=== PATIENT | female | born 1955 | race Caucasian/White ===

== ENCOUNTER 2017-03-06 16:25 | Emergency (ER) | payer MEDICAID, MEDICARE ==
[~2017-03-06] VITALS: Ht 160 cm; Wt 70.8 kg
[~2017-03-06 16:25] MED LIST: ALBU8.5H8 IH; ASPI-482 PO; AZIT500T4 PO; CICL34.6 TP; CRESTOR10 MG PO; DEXL60CA2 PO; DULO30CA2 PO; ELET40TA PO; ESTR0.9T PO; FLUT10.6 IH; HYDR-2762 PO; HYDR25TA PO; LORA1TAB PO; METF500T4 PO; OFLO5DRO7 OT; PRED-220 PO; PREG100C PO; PREG50CA PO; PROM25TA10 PO; RANI150C PO; SPIR1TAB PO; SUCR1TAB PO; SUMA100T4 PO; TOPI25TA7 PO
[2017-03-06 17:47] VITALS: BP 157/89
[2017-03-06] MEDS ORDERED: HYDR-971 PO (17:50)
--- NOTE | 2017-03-06 17:50 | PHYS DOC ---
Past History Past Medical History: Depression, Diabetes, GERD, Hypertension Past Surgical History: Hysterectomy, Other Smoking: Less than 1pk/day Alcohol Use: None Drug Use: None Adult General Chief Complaint Chief Complaint: RIB PAIN HPI HPI 61-year-old female patient with history of the smoking states she had an accidental fall from a standing position last night around 1999 without loss of consciousness or head injury. Patient complaining of pain in right shoulder and right side of her ribs that getting worse with movement and taking deep breaths. Patient states she had ibuprofen before coming to ER and rated her pain 9/10. Patient denies fever and chills, shortness of breath, nausea and vomiting, focal neuro deficit. Review of Systems Review of Systems Constitutional: Denies fever or chills [] Eyes: Denies change in visual acuity, redness, or eye pain [] HENT: Denies nasal congestion or sore throat [] Respiratory: Denies cough or shortness of breath [] Cardiovascular: No additional information not addressed in HPI [] GI: Denies abdominal pain, nausea, vomiting, bloody stools or diarrhea [] : Denies dysuria or hematuria [] Musculoskeletal: Denies back pain, reports joint pain [] Integument: Denies rash or skin lesions [] Neurologic: Denies headache, focal weakness or sensory changes [] Endocrine: Denies polyuria or polydipsia [] All other systems were reviewed and found to be within normal limits, except as documented in this note. Allergies Allergies Allergies Coded Allergies Type Severity Reaction Last Updated Verified Cephalexin Monohydrate Allergy Unknown BLISTERS 03/06/17 Yes Penicillins Allergy Unknown STREAKS ON SKIN 03/06/17 Yes diphenhydramine Allergy Unknown 03/06/17 Yes sulfamethoxazole Allergy Unknown BLISTERS 03/06/17 Yes trimethoprim Allergy Unknown BLISTERS 03/06/17 Yes Physical Exam Physical Exam Constitutional: Well developed, well nourished, mild distress, non-toxic appearance. [] HENT: Normocephalic, atraumatic, bilateral external ears normal, oropharynx moist, no oral exudates, nose normal. [] Eyes: PERRLA, EOMI, conjunctiva normal, no discharge. [] Neck: Normal range of motion, no tenderness, supple, no stridor. [] Cardiovascular:Heart rate regular rhythm, no murmur [] Lungs & Thorax: Bilateral breath sounds clear to auscultation, right-sided chest wall tenderness without crepitation or ecchymosis [] Abdomen: Bowel sounds normal, soft, no tenderness, no masses, no pulsatile masses. [] Skin: Warm, dry, no erythema, no rash. [] Back: No tenderness, no CVA tenderness. [] Extremities: No tenderness, no cyanosis, no clubbing, ROM intact, no edema, right shoulder without tenderness or deformity. [] Neurologic: Alert and oriented X 3, normal motor function, normal sensory function, no focal deficits noted. [] Psychologic: Affect normal, judgement normal, mood normal. [] Current Patient Data Vital Signs Vital Signs Date Time Temp Pulse Resp B/P (MAP) Pulse Ox O2 Delivery O2 Flow Rate FiO2 03/06/17 16:39 97.8 102 16 97 Room Air EKG EKG [] Radiology/Procedures Radiology/Procedures [Shoulder x-ray and right ribs x-ray interpreted by me and did not show acute fracture] Course & Med Decision Making Course & Med Decision Making Pertinent Imaging studies reviewed. (See chart for details) [] Dragon Disclaimer Dragon Disclaimer This electronic medical record was generated, in whole or in part, using a voice recognition dictation system. Departure Departure: Impression: Primary Impression: Chest wall injury Additional Impressions: Rib pain on right side Right shoulder strain Fall at home Tobacco abuse Tobacco abuse counseling Disposition: HOME, SELF-CARE (At 1748) Condition: STABLE Referrals: MANJU BALTAZAR DO (PCP) Patient Instructions: Muscle Strain, Rib Contusion, Smoking Cessation Additional Instructions: Follow-up with your primary care physician in 3-5 days Quit smoking Apply ice sinus chest and shoulder Scripts Hydrocodone Bit/Acetaminophen (NORCO 5-325 TABLET) 1 Each Tablet 1 TAB PO PRN Q6HRS Y for PAIN, #14 TAB 0 Refills Prov: GIO HUTCHISON MD 03/06/17 Problem Qualifiers GIO HUTCHISON MD Mar 06, 2017 17:50
--- NOTE | 2017-03-07 07:55 | RAD ---
Right shoulder, 3 views, 03/06/2017: History: Fall, pain No fracture or dislocation is identified. No significant arthritic change is seen. IMPRESSION: No acute right shoulder abnormality is detected. Right RIBS with chest, 3 views, 03/06/2017: No acute right rib fracture is identified. There is no evidence of underlying pneumothorax, hemothorax or pulmonary infiltrate. The heart size is normal. Mild scattered degenerative changes are present in the spine. IMPRESSION: No acute right rib abnormality is detected.
== END 2017-03-06 17:55 | disposition home or self-care (01) ==
LOC: ER 16:25
DX: S29.9XXA Unspecified injury of thorax, initial encounter (principal); S46.911A Strain of unspecified muscle, fascia and tendon at shoulder and upper arm level, right arm, initial encounter; F17.200 Nicotine dependence, unspecified, uncomplicated; K21.9 Gastro-esophageal reflux disease without esophagitis; I10 Essential (primary) hypertension; E11.9 Type 2 diabetes mellitus without complications; Z88.0 Allergy status to penicillin; Z88.1 Allergy status to other antibiotic agents; Z88.8 Allergy status to other drugs, medicaments and biological substances; W19.XXXA Unspecified fall, initial encounter; Y93.89 Activity, other specified; Y99.8 Other external cause status; Y92.098 Other place in other non-institutional residence as the place of occurrence of the external cause
CPT/HCPCS: 71101; 73030; 99284

== ENCOUNTER 2019-05-15 12:06 | Emergency (ER) | payer MEDICARE, MEDICAID ==
[~2019-05-15] VITALS: Ht 160 cm; Wt 75.0 kg
[~2019-05-15 12:06] MED LIST changes: +ALBU2.5V8 IH; -ALBU8.5H8 IH; -HYDR-2762 PO; +HYDR-2765 PO; +HYDR-3165 PO; +LORA-254 PO; -LORA1TAB PO; +METF500T16 PO; -METF500T4 PO
[2019-05-15] MEDS ORDERED: IV NORMAL SALINE 1,000ML 1,000 ML IV ONE (13:45)
[2019-05-15] MEDS ORDERED: IPRATRPIUM/ALBUTEROL 0.5/2.5MG 3 ML NEBU. NEB ONE (13:45)
[2019-05-15] MEDS ORDERED: DEXAMETHASONE SOD PHOS 4 MG/ML VIAL IVP ONE (13:45)
--- NOTE | 2019-05-15 13:51 | PHYS DOC ---
Past History Past Medical History: Depression, Diabetes, GERD, Hypertension Past Surgical History: Hysterectomy, Other Smoking: Less than 1pk/day Alcohol Use: None Drug Use: None Adult General Chief Complaint Chief Complaint: FLU SYMPTOM HPI HPI Patient is a 63-year-old female presents today with history of COPD and current every day smoker presents to the ED with generalized weakness, nonproductive cough, and nausea/vomiting. He stated that she was diagnosed with a "double lung pneumonia" in January 2019, but has had a nonproductive cough and generalized weakness since. She states that the cough is unchanged, but constant since January. She does feel like she has mucus in the back of her throat but is unable to "break loose." She does have generalized weakness and upper abdominal pain, nausea, and vomiting associated with her cough. She states that when her coughing spells are severe she does feel lightheaded and dizzy. She denies re cent fevers does state that she has felt body chills. Patient had a recent CTA at [facility] approximately 2 weeks ago which reportedly was "normal". She finished a course of antibiotics that she believes was "clindamycin" last week for the same symptoms. She states that her symptoms do limit her daily routine due to feeling lightheaded and short of breath when cli mbing up and down stairs. She mentioned that she had been recently diagnosed low levels of potassium and magnesium and had been treating those daily. Review of Systems Review of Systems Constitutional: Denies fever, reports chills and generalized weakness HENT: Denies nasal congestion or sore throat Respiratory: Reports cough and shortness of breath Cardiovascular: Denies chest pain or palpitations GI: Reports abdominal pain, nausea, and vomiting Complete systems were reviewed and found to be within normal limits, except as documented in this note. Family History Family History No pertinent family history Allergies Allergies Allergies Coded Allergies Type Severity Reaction Last Updated Verified Cephalexin Monohydrate Allergy Unknown BLISTERS 03/06/17 Yes Penicillins Allergy Unknown STREAKS ON SKIN 03/06/17 Yes diphenhydramine Allergy Unknown 03/06/17 Yes sulfamethoxazole Allergy Unknown BLISTERS 03/06/17 Yes trimethoprim Allergy Unknown BLISTERS 03/06/17 Yes Physical Exam Physical Exam Constitutional: Well developed, well nourished, no acute distress, non-toxic appearance HENT: Normocephalic, atraumatic, oropharynx moist Eyes: EOMI, conjunctiva normal, no discharge Cardiovascular: Heart rate normal, regular rhythm Lungs & Thorax: Bilateral breath sounds clear to auscultation, no wheezing Abdomen: Soft, generalized upper abdominal tenderness to palpation Skin: Warm, dry, no erythema, no rash Extremities: No tenderness, ROM intact, no edema Neurologic: Alert and oriented x 3, normal motor function, normal sensory function, no focal deficits noted Psychologic: Affect normal, judgment normal EKG EKG 05/15/2019 @1402 Normal sinus rhythm with a heart rate of [address] changes Radiology/Procedures Radiology/Procedures PROCEDURE: CHEST PA & LATERAL EXAM: Chest, 2 views. HISTORY: Cough. COMPARISON: None. FINDINGS: 2 views of the chest are obtained. There is no infiltrate, pleural effusion or pneumothorax. The heart is normal in size. There is a calcified granuloma within the right lower lobe. IMPRESSION: No acute pulmonary finding. Electronically signed by: Lety Lenz MD (05/15/2019 2:14 PM) [facility] Course & Med Decision Making Course & Med Decision Making Pertinent Labs and Imaging studies reviewed. (See chart for details) Patient is a 63-year-old female presents today with history of COPD and current every day smoker presents to the ED with generalized weakness, nonproductive cough, and nausea/vomiting. He stated that she was diagnosed with a "double lung pneumonia" in January 2019 and has had a nonproductive cough and generalized weakness since. She states that the cough is unchanged but constant since January. She does feel like she has mucus in the back of her throat but is unable to "break loose." She does have generalized weakness and upper abdominal pain, nausea, and vomiting associated with her cough. She states that when her coughing spells are severe she does feel lightheaded and dizzy. She denies recent fevers does state that she has felt body chills. She had recent "normal" CTA approximately 2 weeks prior and finished a course of antibiotics she believes was clindamycin last week. Patient was worked up for COPD exacerbation versus possible infectious. Symptomatic treatment provided. Labs obtained and posted to chart. WBC and lactic acid WNL. Troponin WNL. BNP WNL. EKG stable. CXR without acute process. Patient stable for discharge home with outpatient follow-up with PCP. Discussed findings and plan with patient, who acknowledges understanding and agreement. Dragon Disclaimer Dragon Disclaimer This electronic medical record was generated, in whole or in part, using a voice recognition dictation system. Departure Departure: Impression: Primary Impression: Chronic bronchitis Disposition: 01 HOME, SELF-CARE Condition: STABLE Referrals: MANJU BALTAZAR DO (PCP) Patient Instructions: Bronchitis, [id number], Chronic Obstructive Pulmonary Disease, [id number] Scripts Guaifenesin/Codeine Phosphate (GUAIFENESIN-CODEINE SYRUP) 118 Ml Liquid 10 ML PO Q4-6HRS PRN for COUGH, #200 ML Prov: BRIELLE CABALLERO DO 05/15/19 Prednisone (PREDNISONE) 20 Mg Tablet 2 TAB PO DAILY for Bronchitis, #8 TAB Start this prescription tomorrow, 05/16/19 Prov: BRIELLE CABALLERO DO 05/15/19 Problem Qualifiers Primary Impression: Chronic bronchitis Chronic bronchitis type: unspecified Qualified Codes: J42 - Unspecified chronic bronchitis BRIELLE CABALLERO DO May 15, 2019 13:51
--- NOTE | 2019-05-15 14:17 | RAD ---
EXAM: Chest, 2 views. HISTORY: Cough. COMPARISON: None. FINDINGS: 2 views of the chest are obtained. There is no infiltrate, pleural effusion or pneumothorax. The heart is normal in size. There is a calcified granuloma within the right lower lobe. IMPRESSION: No acute pulmonary finding. Electronically signed by: Lety Lenz MD (05/15/2019 2:14 PM) [facility]
[2019-05-15 14:44] LABS: BASO % 0 % (0-3); EOS % 0 % (0-3); HEMATOCRIT 45.6 % (36.0-47.0); HEMOGLOBIN 14.8 g/dL (12.0-15.5); LYMPH # 4.9 x10^3/uL (1.0-4.8); LYMPH % 40 % (24-48); MEAN CORPUSCULAR HEMOGLOBIN 30 pg (25-35); MEAN CORPUSCULAR HGB CONC 33 g/dL (31-37); MEAN CORPUSCULAR VOLUME 91 fL (79-100); MONO # 0.7 x10^3/uL (0.0-1.1); MONO % 6 % (0-9); NEUT # 6.7 x10^3uL (1.8-7.7); NEUT % 54 % (31-73); PLATELET COUNT 320 x10^3/uL (140-400); RED BLOOD COUNT 5.02 x10^6/uL (3.50-5.40); RED CELL DISTRIBUTION WIDTH 14.9 % (11.5-14.5); WHITE BLOOD COUNT 12.3 x10^3/uL (4.0-11.0)
[2019-05-15 14:50] LABS: CREATININE 1.2 mg/dL (0.6-1.0); GFR 45.7; POTASSIUM 5.1 mmol/L (3.5-5.1)
[2019-05-15 14:51] LABS: INFLUENZA A PATIENT NEGATIVE (NEGATIVE); INFLUENZA B PATIENT NEGATIVE (NEGATIVE)
[2019-05-15 15:05] LABS: TOTAL BILIRUBIN 0.3 mg/dL (0.2-1.0); TOTAL PROTEIN 7.9 g/dL (6.4-8.2)
[2019-05-15 15:33] LABS: BILIRUBIN,URINE NEG (NEG); CLARITY,URINE CLEAR; COLOR,URINE AMBER; GLUCOSE,URINE NEG (NEG)
[2019-05-15 15:34] LABS: BACTERIA,URINE FEW /HPF (0-FEW); NITRITE,URINE NEG (NEG); RBC,URINE RARE /HPF (0-2); SQUAMOUS EPITHELIAL CELL,UR FEW /LPF; UROBILINOGEN,URINE 0.2 mg/dL (0.2 mg/dL); WBC,URINE 0 /HPF (0-4)
[2019-05-15] MEDS ORDERED: PRED20TA PO (15:42)
[2019-05-15] MEDS ORDERED: GUAI118L13 PO (15:56)
--- NOTE | 2019-05-15 17:41 | EKG ---
[address] [address] Test Date: 2019-05-15 Test Time: 14:02:37 Pat Name: RICHARD CUMMINS Department: Room: Gender: F [employer]: : 1955 Requested By: BRIELLE CABALLERO Order Number: [id number] Reading MD: Measurements Intervals [place] Rate: 80 P: 32 OK: 124 QRS: 44 QRSD: 70 T: 48 QT: 336 QTc: 391 Interpretive Statements SINUS RHYTHM R-S TRANSITION ZONE IN V LEADS DISPLACED TO THE LEFT NO SPECIFIC ECG ABNORMALITIES RI6.01 No previous ECG available for comparison
[2019-05-15 19:31] VITALS: BP 133/52
== END 2019-05-15 16:11 | disposition home or self-care (01) ==
LOC: ER 12:06
DX: J42 Unspecified chronic bronchitis (principal); E11.9 Type 2 diabetes mellitus without complications; K21.9 Gastro-esophageal reflux disease without esophagitis; I10 Essential (primary) hypertension; F17.210 Nicotine dependence, cigarettes, uncomplicated; Z90.710 Acquired absence of both cervix and uterus; Z88.0 Allergy status to penicillin; Z88.2 Allergy status to sulfonamides; Z88.8 Allergy status to other drugs, medicaments and biological substances
CPT/HCPCS: 36415; 71046; 80053; 81001; 82553; 83605; 83735; 83880; 84484; 85025; 87040; 87804; 93005; 94640; 96361; 96374; 99285; J1100; J7620; J7030

== ENCOUNTER 2019-11-02 12:31 | Emergency (ER) | payer MEDICARE, MEDICAID ==
[~2019-11-02] VITALS: Ht 160 cm; Wt 80.8 kg
[~2019-11-02 12:31] MED LIST changes: +GUAI118L13 PO; +PRED20TA PO
[2019-11-02] MEDS ORDERED: ONDANSETRON PF 4 MG/2 ML VIAL. IVP ONE (12:55)
[2019-11-02] MEDS ORDERED: IOHEXOL 300 MG/ML 75 ML VIAL. IV ONE (13:15)
[2019-11-02 13:27] LABS: CALCIUM 9.8 mg/dL (8.5-10.1); CREATININE 1.5 mg/dL (0.6-1.0); GFR 35.2; POTASSIUM 4.5 mmol/L (3.5-5.1)
[2019-11-02 13:32] LABS: ALBUMIN/GLOBULIN RATIO 0.9 (1.0-1.7); MAGNESIUM 1.9 mg/dL (1.8-2.4); TOTAL BILIRUBIN 0.3 mg/dL (0.2-1.0); TOTAL PROTEIN 8.3 g/dL (6.4-8.2)
[2019-11-02 13:52] LABS: BASO # 0.1 x10^3/uL (0.0-0.2); BASO % 1 % (0-3); EOS % 0 % (0-3); HEMATOCRIT 44.5 % (36.0-47.0); HEMOGLOBIN 14.7 g/dL (12.0-15.5); LYMPH # 3.4 x10^3/uL (1.0-4.8); LYMPH % 23 % (24-48); MEAN CORPUSCULAR HEMOGLOBIN 30 pg (25-35); MEAN CORPUSCULAR HGB CONC 33 g/dL (31-37); MEAN CORPUSCULAR VOLUME 91 fL (79-100); MONO # 0.4 x10^3/uL (0.0-1.1); MONO % 3 % (0-9); NEUT # 10.5 x10^3uL (1.8-7.7); NEUT % 73 % (31-73); PLATELET COUNT 305 x10^3/uL (140-400); RED CELL DISTRIBUTION WIDTH 14.6 % (11.5-14.5); WHITE BLOOD COUNT 14.5 x10^3/uL (4.0-11.0)
--- NOTE | 2019-11-02 14:01 | RAD ---
PQRS Compliance Statement: One or more of the following individualized dose reduction techniques were utilized for this examination: 1. Automated exposure control 2. Adjustment of the mA and/or kV according to patient size 3. Use of iterative reconstruction technique CT abdomen/pelvis without contrast 11/02/2019 12:43 PM INDICATION: Left lower quadrant abdominal pain. COMPARISON: CT abdomen/pelvis 03/15/2014 TECHNIQUE: Multiple axial CT images of the abdomen and pelvis were obtained without intravenous contrast. Coronal and sagittal reformats are provided. FINDINGS: Centrilobular pulmonary emphysematous changes are identified at the lung bases. Bibasilar subsegmental atelectasis versus scarring noted. Calcified granuloma measuring 5 mm at the right lung base. Heart size is within normal limits. Small hiatal hernia. Evaluation of the solid abdominal viscera is limited by lack of intravenous contrast. Gallbladder surgically absent. Calcifications within the spleen likely represent sequela prior granulomatous exposure. Adrenal glands, pancreas and kidneys are normal in appearance. No hydronephrosis or renal calculi are identified. Urinary bladder is within normal limits given degree of distention. Uterus appears surgically absent or atrophied. No suspicious adnexal mass. Small and large bowel loops are normal in caliber. No bowel obstruction or inflammation. Appendix is not definitively visualized. No pericecal inflammatory changes are identified. No suspicious osseous abnormality is identified. Abdominal aorta is normal in course and caliber. No pathologically enlarged lymph nodes are identified in abdomen and pelvis. There is no free fluid or free intraperitoneal air. There is a small fat-containing umbilical hernia measuring 9 mm. IMPRESSION: No acute abnormality is identified in abdomen and pelvis. Incidental findings, as detailed above. Electronically signed by: Rocio Cohen MD (11/02/2019 1:58 PM) [facility]
[2019-11-02 14:18] LABS: BILIRUBIN,URINE NEG (NEG); CLARITY,URINE CLEAR; COLOR,URINE YELLOW; GLUCOSE,URINE NEG (NEG)
[2019-11-02 14:19] LABS: BACTERIA,URINE 0 /HPF (0-FEW); NITRITE,URINE NEG (NEG); SQUAMOUS EPITHELIAL CELL,UR FEW /LPF; UROBILINOGEN,URINE 0.2 mg/dL (0.2 mg/dL)
--- NOTE | 2019-11-02 14:27 | PHYS DOC ---
Past History Past Medical History: Depression, Diabetes, GERD, High Cholesterol, Hypertension Additional Past Medical Histor: hypokalemia, hypomagnesEMIA, PERIPHERAL NEUROPATHY Past Surgical History: Appendectomy, Cholecystectomy, Hysterectomy, Tonsillectomy Smoking: Less than 1pk/day Alcohol Use: None Drug Use: None General Adult EDM: Chief Complaint: NAUSEA/VOMITING/DIARRHEA HPI: HPI: The history was obtained from the patient. Patient is a 64-year-old female with PMH diabetes, hyperlipidemia, hypertension who presents with a chief complaint of vomiting and left lower quadrant abdominal pain. Patient states over the past week she has had intermittent left lower quadrant abdominal discomfort. She states it is aching in nature. She states that she did have one episode of nonbloody nonbilious emesis prior to arrival. She notes that she was recently seen at outside hospital and diagnosed with low potassium and low magnesium. She states they want to hospitalize her however did not have space in the hospital and discharge her home. Denies any history of colonoscopy or diverticulitis. She does note history of hysterectomy, appendectomy, and cholecystectomy. She denies any dysuria or hematuria. She does note some associated lightheadedness with her vomiting. She denies any chest pain or shortness of breath. Denies any objective fevers. No other complaints. Review of Systems: Review of Systems: Constitutional: Denies fever or chills Eyes: Denies change in visual acuity HENT: Denies nasal congestion or sore throat Respiratory: Denies cough or shortness of breath Cardiovascular: Denies chest pain or edema GI: Positive for abdominal pain and vomiting : Denies dysuria Musculoskeletal: Denies back pain or joint pain Integument: Denies rash Neurologic: Denies headache, focal weakness or sensory changes Endocrine: Denies polyuria or polydipsia Lymphatic: Denies swollen glands Psychiatric: Denies depression or anxiety Heart Score: Risk Factors: Risk Factors: DM, Current or recent (<one month) smoker, HTN, HLP, family history of CAD, obesity. Risk Scores: Score 0 - 3: 2.5% MACE over next 6 weeks - Discharge Home Score 4 - 6: 20.3% MACE over next 6 weeks - Admit for Clinical Observation Score 7 - 10: 72.7% MACE over next 6 weeks - Early Invasive Strategies Current Medications: Current Meds: Current Medications Medications (Trade) Dose Ordered Sig/Dottie Start Time Stop Time Status Last Admin Dose Admin Iohexol (Omnipaque 300 Mg/ml) 75 ml 1X ONCE 11/02/19 13:15 11/02/19 13:16 DC Ondansetron HCl (Zofran) 8 mg 1X ONCE 11/02/19 12:55 11/02/19 12:56 DC 11/02/19 13:03 8 MG Allergies: Allergies: Allergies Coded Allergies Type Severity Reaction Last Updated Verified Cephalexin Monohydrate Allergy Unknown BLISTERS 03/06/17 Yes Iodinated Contrast Media Allergy Unknown 11/02/19 Yes Penicillins Allergy Unknown STREAKS ON SKIN 03/06/17 Yes diphenhydramine Allergy Unknown 03/06/17 Yes sulfamethoxazole Allergy Unknown BLISTERS 03/06/17 Yes trimethoprim Allergy Unknown BLISTERS 03/06/17 Yes Physical Exam: PE: Constitutional: Well developed, well nourished, no acute distress, non-toxic appearance. [] HENT: Normocephalic, atraumatic, bilateral external ears normal, oropharynx moist, no oral exudates, nose normal. [] Eyes: PERRLA, EOMI, conjunctiva normal, no discharge. [] Neck: Normal range of motion, no tenderness, supple, no stridor. [] Cardiovascular:Heart rate regular rhythm, no murmur [] Lungs & Thorax: Bilateral breath sounds clear to auscultation [] Abdomen: Soft, nontender, nonacute abdomen. No involuntary guarding or rigidity noted. No acute peritonitis. Skin: Warm, dry, no erythema, no rash. [] Back: No tenderness, no CVA tenderness. [] Extremities: No tenderness, no cyanosis, no clubbing, ROM intact, no edema. [] Neurologic: Alert and oriented X 3, normal motor function, normal sensory function, no focal deficits noted. [] Psychologic: Affect normal, judgement normal, mood normal. [] Current Patient Data: Labs: Laboratory Tests Test 11/02/19 13:00 White Blood Count 14.5 x10^3/uL (4.0-11.0) H Red Blood Count 4.90 x10^6/uL (3.50-5.40) Hemoglobin 14.7 g/dL (12.0-15.5) Hematocrit 44.5 % (36.0-47.0) Mean Corpuscular Volume 91 fL (79-100) Mean Corpuscular Hemoglobin 30 pg (25-35) Mean Corpuscular Hemoglobin Concent 33 g/dL (31-37) Red Cell Distribution Width 14.6 % (11.5-14.5) H Platelet Count 305 x10^3/uL (140-400) Neutrophils (%) (Auto) 73 % (31-73) Lymphocytes (%) (Auto) 23 % (24-48) L Monocytes (%) (Auto) 3 % (0-9) Eosinophils (%) (Auto) 0 % (0-3) Basophils (%) (Auto) 1 % (0-3) Neutrophils # (Auto) 10.5 x10^3uL (1.8-7.7) H Lymphocytes # (Auto) 3.4 x10^3/uL (1.0-4.8) Monocytes # (Auto) 0.4 x10^3/uL (0.0-1.1) Eosinophils # (Auto) 0.0 x10^3/uL (0.0-0.7) Basophils # (Auto) 0.1 x10^3/uL (0.0-0.2) Sodium Level 137 mmol/L (136-145) Potassium Level 4.5 mmol/L (3.5-5.1) Chloride Level 100 mmol/L (98-107) Carbon Dioxide Level 26 mmol/L (21-32) Anion Gap 11 (6-14) Blood Urea Nitrogen 20 mg/dL (7-20) Creatinine 1.5 mg/dL (0.6-1.0) H Estimated GFR (Cockcroft-Gault) 35.2 BUN/Creatinine Ratio 13 (6-20) Glucose Level 124 mg/dL (70-99) H Calcium Level 9.8 mg/dL (8.5-10.1) Magnesium Level 1.9 mg/dL (1.8-2.4) Total Bilirubin 0.3 mg/dL (0.2-1.0) Aspartate Amino Transferase (AST) 20 U/L (15-37) Alanine Aminotransferase (ALT) 22 U/L (14-59) Alkaline Phosphatase 150 U/L (46-116) H Total Protein 8.3 g/dL (6.4-8.2) H Albumin 4.0 g/dL (3.4-5.0) Albumin/Globulin Ratio 0.9 (1.0-1.7) L Lipase 161 U/L (73-393) Vital Signs: Vital Signs Date Time Temp Pulse Resp B/P (MAP) Pulse Ox O2 Delivery O2 Flow Rate FiO2 11/02/19 12:35 97.9 84 20 123/70 (87) 94 Room Air EKG: EKG: [] Radiology/Procedures: Radiology/Procedures: [][address] [address] IMAGING REPORT Signed PATIENT: RICHARD CUMMINS FACCOUNT: [id number] : 1955 LOCATION: ER AGE: 64 SEX: F EXAM STATUS: REG ER ORD. PHYSICIAN: MARY TURNER DO REASON: LLQ pain PROCEDURE: CT ABDOMEN PELVIS WO CONTRAST PQRS Compliance Statement: One or more of the following individualized dose reduction techniques were utilized for this examination: 1. Automated exposure control 2. Adjustment of the mA and/or kV according to patient size 3. Use of iterative reconstruction technique CT abdomen/pelvis without contrast 11/02/2019 12:43 PM INDICATION: Left lower quadrant abdominal pain. COMPARISON: CT abdomen/pelvis 03/15/2014 TECHNIQUE: Multiple axial CT images of the abdomen and pelvis were obtained without intravenous contrast. Coronal and sagittal reformats are provided. FINDINGS: Centrilobular pulmonary emphysematous changes are identified at the lung bases. Bibasilar subsegmental atelectasis versus scarring noted. Calcified granuloma measuring 5 mm at the right lung base. Heart size is within normal limits. Small hiatal hernia. Evaluation of the solid abdominal viscera is limited by lack of intravenous contrast. Gallbladder surgically absent. Calcifications within the spleen likely represent sequela prior granulomatous exposure. Adrenal glands, pancreas and kidneys are normal in appearance. No hydronephrosis or renal calculi are identified. Urinary bladder is within normal limits given degree of distention. Uterus appears surgically absent or atrophied. No suspicious adnexal mass. Small and large bowel loops are normal in caliber. No bowel obstruction or inflammation. Appendix is not definitively visualized. No pericecal inflammatory changes are identified. No suspicious osseous abnormality is identified. Abdominal aorta is normal in course and caliber. No pathologically enlarged lymph nodes are identified in abdomen and pelvis. There is no free fluid or free intraperitoneal air. There is a small fat-containing umbilical hernia measuring 9 mm. IMPRESSION: No acute abnormality is identified in abdomen and pelvis. Incidental findings, as detailed above. Electronically signed by: Saumya Fraser MD (11/02/2019 1:58 PM) [facility] DICTATED AND SIGNED BY: SAUMYA FRASER MD DATE: 11/02/19 0916 CC: MANJU BALTAZAR DO; MARY TURNER DO ~ Course & Med Decision Making: Course & Med Decision Making Pertinent Labs and Imaging studies reviewed. (See chart for details) Patient is a well-appearing 64-year-old female who presents with chief complaint of nausea and vomiting with left lower quadrant abdominal pain. Initial vital signs unremarkable. Exam notable for no reproducible abdominal pain. Basic labs were obtained. Potassium within normal limits as well as magnesium. Slight elevation of alk phos. However the patient does have a history of cholecystectomy. Urinalysis does not show evidence of infection. She does have a slightly elevated creatinine however she has tolerated p.o. in the emergency department. She was given IV fluids. Her symptoms were treated and well contr olled. CT imaging reveals no acute surgical etiology regarding her symptoms. Patient does feel comfortable being discharged home with close outpatient monitoring. She will be discharged with Zofran and Bentyl. Strict 24 to 48- hour return precautions were given. Patient expressed understanding. She was instructed to follow-up with her primary care physician. Appropriate for d ischarge home. Van Disclaimer: Van Disclaimer: This electronic medical record was generated, in whole or in part, using a voice recognition dictation system. Departure Departure: Impression: Primary Impression: Nausea and vomiting Additional Impression: Abdominal pain Disposition: 01 HOME/RESIDENCE PRIOR TO ADM Condition: GOOD Referrals: MANJU BALTAZAR DO (PCP) Patient Instructions: Nausea and Vomiting Additional Instructions: Please return the emergency department in 1 to 2 days should her symptoms not improve or worsen. Please follow-up with your primary care physician in 2 to 3 days. Scripts Dicyclomine Hcl (BENTYL) 10 Mg/1 Ml Ampul 10 MG IM QIDPRN PRN for pain, #16 EACH Prov: MARY TURNER DO 11/02/19 Ondansetron Hcl (ZOFRAN) 8 Mg Tablet 4 MG PO TID PRN PRN for NAUSEA, #9 TAB Prov: MARY TURNER DO 11/02/19 Justification of Admission: Justification of Admission: Justification of Admission Dx: N/A MARY TURNER DO Nov 02, 2019 14:26
[2019-11-02] MEDS ORDERED: HALOPERIDOL LACT 5 MG/ML VIAL. IVP ONE (14:35)
[2019-11-02] MEDS ORDERED: MORPHINE SULFATE 4 MG/ML DISP.SYRIN. IV ONE (14:40)
[2019-11-02] MEDS ORDERED: IV NORMAL SALINE 1,000ML 1,000 ML IV ONE (14:45)
[2019-11-02] MEDS ORDERED: DICY10AM IM (14:57)
[2019-11-02] MEDS ORDERED: ONDA8TAB9 PO (14:57)
[2019-11-02 15:00] VITALS: BP 103/55
--- NOTE | 2019-11-02 20:53 | EKG ---
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
== END 2019-11-02 15:15 | disposition home or self-care (01) ==
LOC: ER 12:31
DX: R11.2 Nausea with vomiting, unspecified (principal); R10.32 Left lower quadrant pain; R42 Dizziness and giddiness; K21.9 Gastro-esophageal reflux disease without esophagitis; E78.00 Pure hypercholesterolemia, unspecified; I10 Essential (primary) hypertension; E11.42 Type 2 diabetes mellitus with diabetic polyneuropathy; F17.200 Nicotine dependence, unspecified, uncomplicated; Z88.1 Allergy status to other antibiotic agents; Z88.8 Allergy status to other drugs, medicaments and biological substances; Z88.0 Allergy status to penicillin; Z88.2 Allergy status to sulfonamides
CPT/HCPCS: 36415; 74176; 80053; 81001; 83690; 83735; 85025; 87086; 93005; 96361; 96374; 96375; 99285; J1630; J2270; J2405; J7030

== ENCOUNTER 2020-04-18 18:13 | Emergency (ER) | payer MEDICARE, MEDICAID ==
[~2020-04-18] VITALS: Ht 160 cm; Wt 81.5 kg
[~2020-04-18 18:13] MED LIST changes: +DICY10AM IM; +ONDA8TAB9 PO
--- NOTE | 2020-04-18 18:28 | PHYS DOC ---
Past History Past Medical History: Bronchitis, COPD, Depression, Diabetes, GERD, High Cholesterol, Hypertension Additional Past Medical Histor: hypokalemia, hypomagnesEMIA, PERIPHERAL NEUROPATHY Past Surgical History: Appendectomy, Cholecystectomy, Hysterectomy, Tonsillectomy Past Surgical History bladder sling Smoking: Less than 1pk/day Alcohol Use: None Drug Use: None General Adult EDM: Chief Complaint: UPPER EXTREMITY PAIN HPI: HPI: ".. I got this chest pain.. here on Rt. I ve had it three days.. hurts to move.. cough. it will not let up..." Patient is a age year old female who presents with above hx and complaints left anterior axillary line T6 point tenderness along chest wall. Pain has been somewhat persistent is exacerbated by deep breaths, cough, movement, palpation. Patient denies any trauma. Patient denies any fever or chills. Patient denies any recent travel. Patient has not noticed a rash at the area. Patient is up-to-date with her flu vaccination as well as pneumonia vaccination. Has not completed a zoster series. Patient normally follows with Dr. Loan Diallo. Reviewed old record. Apparently she did have a bladder sling back in for incontinence was her last prolonged admission. Currently patient is wearing a salon pause patch over area is most tender. No axillary adenopathy. No appreciable cellulitis , zoster or obvious breast abnormalities on the right s sonia. Review of Systems: Review of Systems: Constitutional: Denies fever or chills Eyes: Denies change in visual acuity HENT: Denies nasal congestion or sore throat Respiratory: Denies cough or shortness of breath Cardiovascular: Complains of right chest wall/chest pain denies edema GI: Denies abdominal pain, nausea, vomiting, bloody stools or diarrhea : Denies dysuria Musculoskeletal: Denies back pain or joint pain Integument: Denies rash Neurologic: Denies headache, focal weakness or sensory changes Endocrine: Denies polyuria or polydipsia Lymphatic: Denies swollen glands Psychiatric: Denies depression or anxiety Family History: Family History: Noncontributory to presentation Current Medications: Current Meds: See nursing for home meds Allergies: Allergies: Allergies Coded Allergies Type Severity Reaction Last Updated Verified Cephalexin Monohydrate Allergy Unknown BLISTERS 03/06/17 Yes Penicillins Allergy Unknown STREAKS ON SKIN 03/06/17 Yes diphenhydramine Allergy Unknown 03/06/17 Yes sulfamethoxazole Allergy Unknown BLISTERS 03/06/17 Yes trimethoprim Allergy Unknown BLISTERS 03/06/17 Yes Uncoded Allergies Type Severity Reaction Last Updated Verified oral contrast Allergy Unknown 11/02/19 Physical Exam: PE: Constitutional: Moderate acute distress, non-toxic appearance. [] HENT: Normocephalic, atraumatic, bilateral external ears normal, oropharynx moist, no oral exudates, nose normal. [] Eyes: PERRLA, EOMI, conjunctiva normal, no discharge. [] Neck: Normal range of motion, no tenderness, supple, no stridor. [] Cardiovascular:Heart rate regular rhythm, no murmur [] Lungs & Thorax: Bilateral breath sounds equal apex on auscultation [] chest wall tenderness as per HPI Abdomen: Bowel sounds normal, soft, no tenderness, no masses, no pulsatile masses. Old surgery scars. Skin: Warm, dry, no erythema, no rash. [] Back: No tenderness, no CVA tenderness. [] Extremities: No tenderness, no cyanosis, no clubbing, ROM intact, no edema. No cording Neurologic: Alert and oriented X 3, normal motor function, normal sensory function, no focal deficits noted. [] Psychologic: Affect anxious, judgement normal, mood normal. [] EKG: EKG: My interpretation EKG shows sinus rhythm at 76 bpm. No acute morphology noted. [] Radiology/Procedures: Radiology/Procedures: [place] [address] IMAGING REPORT Signed PATIENT: RICHARD CUMMINS FACCOUNT: [id number] : 1955 LOCATION: ER AGE: 64 SEX: F EXAM STATUS: REG ER ORD. PHYSICIAN: MEGHANA LEMONS MD REASON: Right sided chest pain Omni 350 100cc PROCEDURE: CT ANGIOGRAPHY CHEST Exam: CT of chest with contrast INDICATION: Right-sided chest pain TECHNIQUE: Sequential axial images through the chest obtained following the administration of 100 mL of Omni 350 IV contrast. Sagittal and coronal reformatted images were reconstructed from the axial data and reviewed. 3-D reformatted images were reconstructed from the axial data and reviewed. Comparisons: Chest x-ray same day FINDINGS: Visualized portions of the thyroid are unremarkable. No enlarged mediastinal lymph nodes. Heart size is normal. No pericardial effusion. Mild coronary artery calcifications. Thoracic aorta has a normal course and caliber. Pulmonary artery is not enlarged. No pulmonary embolus identified within the main, lobar or segmental pulmonary arteries. Airways are patent. There is patchy areas of groundglass opacity linear bandlike consolidation at the lung bases bilaterally. Mild centrilobular emphysematous changes noted at the upper lungs. 5 mm nodule right upper lobe series 4 image 50. No pleural effusion or thickening. Visualized upper abdomen is unremarkable. No suspicious osseous lesions or acute fractures. IMPRESSION: 1. No pulmonary embolus identified within the main, lobar or segmental pulmonary arteries. 2. Linear bandlike airspace disease at the lung bases bilaterally may relate to extensive atelectasis. Developing consolidative/infectious process is difficult to exclude. 3. A 5 mm nodule right upper lobe. In a low-risk patient no further follow-up imaging. In a high-risk patient optional one-year follow-up chest CT can BE performed. Exposure: One or more of the following in the visualized dose reduction techniques were utilized for this examination: 1. Automated exposure control 2. Adjustment of the MA and/or KV according to patient size 3. Use of iterative of reconstructive technique Electronically signed by: Allison Murrell MD (04/18/2020 8:41 PM) [facility] DICTATED AND SIGNED BY: ALLISON MURRELL MD DATE: 04/18/202035 CC: MEGHANA LEMONS MD; LOAN DIALLO DO ~MTH0 0 [][place] [address] IMAGING REPORT Signed PATIENT: RICHARD CUMMINS FACCOUNT: [id number] : 1955 LOCATION: ER AGE: 64 SEX: F EXAM STATUS: REG ER ORD. PHYSICIAN: MEGHANA LEMONS MD REASON: Right sided chest pain PROCEDURE: CHEST PA & LATERAL Exam: Chest 2 views INDICATION: Right-sided chest pain TECHNIQUE: Frontal and lateral views the chest Comparisons: 05/15/2019 FINDINGS: The cardiomediastinal silhouette and pulmonary vessels are within normal limits. Strandy opacities at the lung bases bilaterally. No pleural effusion. IMPRESSION: Strandy bibasilar airspace disease, may relate to atelectasis or developing infectious process. Electronically signed by: Allison Murrell MD (04/18/2020 7:24 PM) [facility] DICTATED AND SIGNED BY: ALLISON MURRELL MD DATE: 04/18/201917 CC: MEGHANA LEMONS MD; MICHELLE DIALLO Heart Score: HEART Score for Chest Pain: HEART Score for Chest Pain Response (Comments) Value History Slighlty/Non-Suspicious 0 ECG Normal 0 Age >45 - < 65 1 Risk Factors 1 or 2 Risk Factors 1 Troponin < Normal Limit 0 Total 2 Risk Factors: Risk Factors: DM, Current or recent (<one month) smoker, HTN, HLP, family history of CAD, obesity. Risk Scores: Score 0 - 3: 2.5% MACE over next 6 weeks - Discharge Home Score 4 - 6: 20.3% MACE over next 6 weeks - Admit for Clinical Observation Score 7 - 10: 72.7% MACE over next 6 weeks - Early Invasive Strategies Course & Med Decision Making: Course & Med Decision Making Pertinent Labs and Imaging studies reviewed. (See chart for details) Recommend patient stop smoking. To assess any breathing. Use MDI 2 puffs 4 times a day. Take prednisone 50 mg a day for 5 days. Take Zithromax 250 mg daily for 5 days. Follow follow-up urine cultures. Follow-up Covid testing. Self isolate. Wear a mask anytime you are away from home that covers your nose and mouth. Patient may take Tylenol and ibuprofen for discomfort or fever. Patient take Eliquis 2.5 mg twice a day. Review ED work-up with primary care. Monitor glucose levels can go up with steroids. Consider COVID testing, currenlty you refusing it here. Consider convalescent immune antibody testing after 10day self-isolation. Impression: 1. Chest wall pain 2. Atypical pneumonia 3. Elevated D-dimer 4. UTI 5. Hypomagnesium 1.6 6. Leukocytosis 7. Tobacco use 8. Diabetes 159 [] Van Disclaimer: Van Disclaimer: This electronic medical record was generated, in whole or in part, using a voice recognition dictation system. Departure Departure: Referrals: LOAN DIALLO DO (PCP) Scripts Apixaban (ELIQUIS) 2.5 Mg Tablet 2.5 MG PO BID for elev. d dimer for 10 Days, #20 TAB Prov: MEGHANA LEMONS MD 04/18/20 Prednisone (PREDNISONE) 50 Mg Tablet 50 MG PO DAILY for bronchitis for 5 Days, #5 TAB Prov: MEGHANA LEMONS MD 04/18/20 Azithromycin (ZITHROMAX) 250 Mg Tablet 250 MG PO DAILY for ANTI-BIOTIC, #5 TAB 0 Refills Prov: MEGHANA LEMONS MD 04/18/20 Dragon Disclaimer This chart was dictated in whole or in part using Voice Recognition software in a busy, high-work load, and often noisy Emergency Department environment. It may contain unintended and wholly unrecognized errors or omissions. MEGHANA LEMONS MD Apr 18, 2020 18:28
[2020-04-18] MEDS ORDERED: KETOROLAC 30 MG/ML VIAL. IVP ONE (19:00)
[2020-04-18] MEDS ORDERED: IV RINGERS SOLUTION,LACTATED 1,000 ML IV SCH (19:00)
--- NOTE | 2020-04-18 19:26 | RAD ---
Exam: Chest 2 views INDICATION: Right-sided chest pain TECHNIQUE: Frontal and lateral views the chest Comparisons: 05/15/2019 FINDINGS: The cardiomediastinal silhouette and pulmonary vessels are within normal limits. Strandy opacities at the lung bases bilaterally. No pleural effusion. IMPRESSION: Strandy bibasilar airspace disease, may relate to atelectasis or developing infectious process. Electronically signed by: Allison Aaron MD (04/18/2020 7:24 PM) [facility]
[2020-04-18 19:40] LABS: BASO % 0 % (0-3); EOS % 0 % (0-3); HEMATOCRIT 45.1 % (36.0-47.0); HEMOGLOBIN 14.7 g/dL (12.0-15.5); LYMPH # 4.8 x10^3/uL (1.0-4.8); LYMPH % 40 % (24-48); MEAN CORPUSCULAR HEMOGLOBIN 31 pg (25-35); MEAN CORPUSCULAR HGB CONC 33 g/dL (31-37); MEAN CORPUSCULAR VOLUME 95 fL (79-100); MONO # 0.7 x10^3/uL (0.0-1.1); MONO % 6 % (0-9); NEUT # 6.5 x10^3uL (1.8-7.7); NEUT % 54 % (31-73); PLATELET COUNT 264 x10^3/uL (140-400); RED BLOOD COUNT 4.78 x10^6/uL (3.50-5.40); RED CELL DISTRIBUTION WIDTH 13.6 % (11.5-14.5); WHITE BLOOD COUNT 12.1 x10^3/uL (4.0-11.0)
[2020-04-18 19:45] LABS: ALBUMIN 3.7 g/dL (3.4-5.0); CALCIUM 9.4 mg/dL (8.5-10.1); CREATININE 0.9 mg/dL (0.6-1.0); DIRECT BILIRUBIN 0.1 mg/dL (0.0-0.2); GFR 63.4; MAGNESIUM 1.6 mg/dL (1.8-2.4); TOTAL BILIRUBIN 0.2 mg/dL (0.2-1.0); TOTAL PROTEIN 7.2 g/dL (6.4-8.2)
[2020-04-18 20:01] LABS: POTASSIUM 4.1 mmol/L (3.5-5.1)
[2020-04-18 20:24] LABS: BACTERIA,URINE 0 /HPF (0-FEW); BILIRUBIN,URINE NEG (NEG); CLARITY,URINE CLEAR; COLOR,URINE YELLOW; GLUCOSE,URINE NEG (NEG); NITRITE,URINE NEG (NEG); SQUAMOUS EPITHELIAL CELL,UR OCC /LPF; WBC,URINE RARE /HPF (0-4)
[2020-04-18] MEDS ORDERED: ALBUTEROL SULFATE 8GM INHALER. INH ONE (20:30)
[2020-04-18] MEDS ORDERED: CONTRAST GIVEN. MC PRN (20:30)
[2020-04-18] MEDS ORDERED: FAMOTIDINE 20 MG/2 ML VIAL IVP ONE (20:30)
[2020-04-18] MEDS ORDERED: diphenhydrAMINE 50 MG/ML VIAL IVP ONE (20:30)
[2020-04-18] MEDS ORDERED: methylPREDNISolone SOD SUCC PF 125 MG/2 ML VIAL. IV ONE (20:30)
[2020-04-18] MEDS ORDERED: IOHEXOL 350 MG/ML 100 ML VIAL. IV ONE (20:30)
[2020-04-18] MEDS ORDERED: AZITHROMYCIN 250 MG TABLET. PO ONE (20:30)
--- NOTE | 2020-04-18 20:43 | RAD ---
Exam: CT of chest with contrast INDICATION: Right-sided chest pain TECHNIQUE: Sequential axial images through the chest obtained following the administration of 100 mL of Omni 350 IV contrast. Sagittal and coronal reformatted images were reconstructed from the axial da ta and reviewed. 3-D reformatted images were reconstructed from the axial data and reviewed. Comparisons: Chest x-ray same day FINDINGS: Visualized portions of the thyroid are unremarkable. No enlarged mediastinal lymph nodes. Heart size is normal. No pericardial effusion. Mild coronary artery calcifications. Thoracic aorta quintana s a normal course and caliber. Pulmonary artery is not enlarged. No pulmonary embolus identified with in the main, lobar or segmental pulmonary arteries. Airways are patent. There is patchy areas of groundglass opacity linear bandlike consolidation at the lung bases bilaterally. Mild centrilobular emphysematous changes noted at the upper lungs. 5 mm nodu le right upper lobe series 4 image 50. No pleural effusion or thickening. Visualized upper abdomen is unremarkable. No suspicious osseous lesions or acute fractures. IMPRESSION: 1. No pulmonary embolus identified within the main, lobar or segmental pulmonary arteries. 2. Linear bandlike airspace disease at the lung bases bilaterally may relate to extensive atelectasi s. Developing consolidative/infectious process is difficult to exclude. 3. A 5 mm nodule right upper lobe. In a low-risk patient no further follow-up imaging. In a high-ris k patient optional one-year follow-up chest CT can BE performed. Exposure: One or more of the following in the visualized dose reduction techniques were utilized for this examination: 1. Automated exposure control 2. Adjustment of the MA and/or KV according to patient size 3. Use of iterative of reconstructive technique Electronically signed by: Allison Aaron MD (04/18/2020 8:41 PM) [facility]
[2020-04-18 20:53] VITALS: BP 124/61
[2020-04-18] MEDS ORDERED: APIXABAN 2.5 MG TABLET PO SCH (21:00)
--- NOTE | 2020-04-18 21:00 | EKG ---
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
[2020-04-18] MEDS ORDERED: APIX2.5T PO (21:09)
[2020-04-18] MEDS ORDERED: AZIT250T PO (21:09)
[2020-04-18] MEDS ORDERED: PRED50TA PO (21:09)
[2020-04-18] MEDS ORDERED: MAGNESIUM HYDROXIDE 2,400 MG/30 ML ORAL.SUSP. PO ONE (21:15)
== END 2020-04-18 21:24 | disposition home or self-care (01) ==
LOC: ER 18:13
DX: N39.0 Urinary tract infection, site not specified (principal); R07.89 Other chest pain; J18.9 Pneumonia, unspecified organism; E83.42 Hypomagnesemia; D72.829 Elevated white blood cell count, unspecified; E11.9 Type 2 diabetes mellitus without complications; R79.89 Other specified abnormal findings of blood chemistry; J44.9 Chronic obstructive pulmonary disease, unspecified; F32.9 Major depressive disorder, single episode, unspecified; K21.9 Gastro-esophageal reflux disease without esophagitis; E78.00 Pure hypercholesterolemia, unspecified; F17.200 Nicotine dependence, unspecified, uncomplicated; I10 Essential (primary) hypertension; Z90.89 Acquired absence of other organs; Z90.49 Acquired absence of other specified parts of digestive tract; Z90.710 Acquired absence of both cervix and uterus
CPT/HCPCS: 36415; 71046; 71275; 80048; 80076; 81001; 82550; 83690; 83735; 83880; 84443; 84484; 85025; 85379; 85610; 85730; 87040; 87086; 93005; 94640; 96361; 96374; 96375; 99285; J1885; J2930; J3490; J7120; Q9967; 94664

== ENCOUNTER 2020-10-22 06:47 | Inpatient (IN) | payer MEDICARE, MEDICAID ==
[~2020-10-22] VITALS: Ht 160 cm; Wt 81.0 kg
[~2020-10-22 06:47] MED LIST changes: +APIX2.5T PO; +AZIT250T PO; +PRED50TA PO
--- NOTE | 2020-10-22 07:23 | PHYS DOC ---
Past History Past Medical History: Bronchitis, COPD, Depression, Diabetes, GERD, High Cholesterol, Hypertension Additional Past Medical Histor: hypokalemia, hypomagnesemia, PERIPHERAL NEUROPATHY Past Surgical History: Appendectomy, Cholecystectomy, Hysterectomy, Tonsillectomy Smoking: Less than 1pk/day Alcohol Use: None Drug Use: None General Adult EDM: Chief Complaint: SHORTNESS OF BREATH HPI: HPI: 65-year-old female presents via EMS with COVID-19 and shortness of breath. Patient was diagnosed with Covid 9 days ago. She was not vaccinated for Covid. She is having worsening shortness of breath yesterday and this morning. She is also having generalized body aches all over. The patient has a history of mild COPD for which she has an inhaler. She has not been on oxygen at home. EMS found her to have low oxygen saturation and placed her on 2 L of nasal cannula. She tells me that she feels much better with the supplemental oxygen. Review of Systems: Review of Systems: Constitutional: Body aches. Denies fever or chills Eyes: Denies change in visual acuity HENT: Denies nasal congestion or sore throat Respiratory: Cough with shortness of breath Cardiovascular: Denies chest pain or edema GI: Denies abdominal pain, nausea, vomiting, bloody stools or diarrhea : Denies dysuria Musculoskeletal: Denies back pain or joint pain Integument: Denies rash Neurologic: Denies headache, focal weakness or sensory changes Endocrine: Denies polyuria or polydipsia Lymphatic: Denies swollen glands Psychiatric: Denies depression or anxiety Allergies: Allergies: Allergies Coded Allergies Type Severity Reaction Last Updated Verified Cephalexin Monohydrate Allergy Intermediate BLISTERS 04/18/20 Yes Iodinated Contrast Media Allergy Intermediate ORAL CONTRAST 04/18/20 Yes Penicillins Allergy Intermediate STREAKS ON SKIN 04/18/20 Yes diphenhydramine Allergy Intermediate 04/18/20 Yes sulfamethoxazole Allergy Intermediate BLISTERS 04/18/20 Yes trimethoprim Allergy Intermediate BLISTERS 04/18/20 Yes Physical Exam: PE: Constitutional: Well developed, well nourished, no acute distress, non-toxic appearance. [] HENT: Normocephalic, atraumatic, bilateral external ears normal, oropharynx moist, no oral exudates, nose normal. [] Eyes: PERRLA, EOMI, conjunctiva normal, no discharge. [] Neck: Normal range of motion, no tenderness, supple, no stridor. [] Cardiovascular: Heart rate 86, regular rhythm, no murmur [] Lungs & Thorax: Bilateral breath sounds diminished with mild expiratory wheezing at the right base [] Abdomen: Bowel sounds normal, soft, no tenderness, no masses, no pulsatile masses. [] Skin: Warm, dry, no erythema, no rash. [] Back: No tenderness, no CVA tenderness. [] Extremities: No tenderness, no cyanosis, no clubbing, ROM intact, no edema. [] Neurologic: Alert and oriented X 3, normal motor function, normal sensory function, no focal deficits noted. [] Psychologic: Affect normal, judgement normal, mood normal. [] Current Patient Data: Vital Signs: Vital Signs Date Time Temp Pulse Resp B/P (MAP) Pulse Ox O2 Delivery O2 Flow Rate FiO2 10/22/20 07:00 98.1 90 20 132/77 97 Nasal Cannula 2.0 EKG: EKG: Sinus rhythm, rate 86, normal axis, no ST elevation or depression. [] Radiology/Procedures: Radiology/Procedures: [] Impressions: EXAM: CHEST ONE VIEW. HISTORY: Shortness of breath. COMPARISON: 04/18/2020. FINDINGS: A frontal view of the chest is obtained. Hyperinflation is consistent with chronic obstructive pulmonary disease. There are interstitial opacities in the right greater than left bases. A calcified granuloma is noted in the right base. There is no pneumothorax or pleural effusion. The heart is not enlarged. IMPRESSION: 1. Mild bibasilar interstitial opacities may reflect mild pulmonary edema or atypical pneumonia, superimposed on interstitial lung disease and chronic obstructive pulmonary disease. Electronically signed by: Evan Ryan MD (10/22/2020 7:26 AM) [facility] DICTATED AND SIGNED BY: YECENIA RYAN MD DATE: 10/22/20 0724 CC: FABRICE NEWMAN DO; MANJU BALTAZAR DO ~MTH0 0 Heart Score: C/O Chest Pain: No Risk Factors: Risk Factors: DM, Current or recent (<one month) smoker, HTN, HLP, family history of CAD, obesity. Risk Scores: Score 0 - 3: 2.5% MACE over next 6 weeks - Discharge Home Score 4 - 6: 20.3% MACE over next 6 weeks - Admit for Clinical Observation Score 7 - 10: 72.7% MACE over next 6 weeks - Early Invasive Strategies Course & Med Decision Making: Course & Med Decision Making Pertinent Labs and Imaging studies reviewed. (See chart for details) The patient appears clinically dry so she will be given a liter normal saline and 10 mg of Decadron IV. Her oxygen level is 94% on 2 L. Without oxygen it is 87%. I spoke with Dr. Ayers and he has accepted the patient for admission. Based on her x-ray, I will treat the patient with azithromycin and Rocephin. We will also place her on Lovenox prophylaxis. [] Dragon Disclaimer: Dragon Disclaimer: This electronic medical record was generated, in whole or in part, using a voice recognition dictation system. Departure Departure: Impression: Primary Impression: COVID-19 Disposition: ADMITTED INPATIENT Admitting Physician: Juancarlos Ayers Condition: STABLE Referrals: MANJU BALTAZAR DO (PCP) FABRICE NEWMAN DO Oct 22, 2020 07:23
--- NOTE | 2020-10-22 07:28 | RAD ---
EXAM: CHEST ONE VIEW. HISTORY: Shortness of breath. COMPARISON: 04/18/2020. FINDINGS: A frontal view of the chest is obtained. Hyperinflation is consistent with chronic obstructive pulmonary disease. There are interstitial opaci ties in the right greater than left bases. A calcified granuloma is noted in the right base. There is no pneumothorax or pleural effusion. The heart is not enlarged. IMPRESSION: 1. Mild bibasilar interstitial opacities may reflect mild pulmonary edema or atypical pneumonia, supe rimposed on interstitial lung disease and chronic obstructive pulmonary disease. Electronically signed by: Evan Ryan MD (10/22/2020 7:26 AM) [facility]
[2020-10-22] MEDS ORDERED: IV NORMAL SALINE 1,000ML 1,000 ML IV ONE (07:30)
[2020-10-22] MEDS ORDERED: DEXAMETHASONE SOD PHOS 10 MG/ML VIAL. IVP ONE (07:30)
[2020-10-22 07:55] LABS: BASO % 1 % (0-3); EOS % 0 % (0-3); HEMATOCRIT 43.3 % (36.0-47.0); HEMOGLOBIN 14.8 g/dL (12.0-15.5); LYMPH # 2.1 x10^3/uL (1.0-4.8); LYMPH % 32 % (24-48); MEAN CORPUSCULAR HEMOGLOBIN 32 pg (25-35); MEAN CORPUSCULAR HGB CONC 34 g/dL (31-37); MEAN CORPUSCULAR VOLUME 94 fL (79-100); MONO # 0.4 x10^3/uL (0.0-1.1); MONO % 6 % (0-9); NEUT # 4.1 x10^3uL (1.8-7.7); NEUT % 62 % (31-73); PLATELET COUNT 173 x10^3/uL (140-400); RED BLOOD COUNT 4.61 x10^6/uL (3.50-5.40); RED CELL DISTRIBUTION WIDTH 13.6 % (11.5-14.5); WHITE BLOOD COUNT 6.6 x10^3/uL (4.0-11.0)
[2020-10-22] MEDS ORDERED: ENOXAPARIN 40 MG/0.4 ML SYRINGE. SQ ONE ×2 (08:00→08:05)
[2020-10-22] MEDS ORDERED: AZITHROMYCIN 500 MG in IV NORMAL SALINE 250ML 250 ML IV ONE (08:00)
[2020-10-22] MEDS ORDERED: ACETAMINOPHEN 325 MG TABLET PO ONE ×2 (08:00→08:05)
[2020-10-22] MEDS ORDERED: METOCLOPRAMIDE HCL 10 MG/2 ML VIAL. IVP ONE (08:00)
[2020-10-22] MEDS ORDERED: ONDANSETRON PF 4 MG/2 ML VIAL. IVP PRN (08:00)
--- NOTE | 2020-10-22 08:01 | EKG ---
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
[2020-10-22 08:02] LABS: CALCIUM 8.1 mg/dL (8.5-10.1); CREATININE 0.9 mg/dL (0.6-1.0); GFR 63.2; POTASSIUM 3.1 mmol/L (3.5-5.1)
[2020-10-22] MEDS ORDERED: AZITHROMYCIN 500 MG VIAL. IV ONE (08:05)
[2020-10-22] MEDS ORDERED: METOCLOPRAMIDE HCL 10 MG/2 ML VIAL. ONE (08:05)
[2020-10-22 08:08] LABS: ALBUMIN 3.1 g/dL (3.4-5.0); TOTAL BILIRUBIN 0.4 mg/dL (0.2-1.0); TOTAL PROTEIN 6.3 g/dL (6.4-8.2)
[2020-10-22 11:50] VITALS: BP 134/72
[2020-10-22] MEDS ORDERED: LINA5TAB4 PO (12:17)
[2020-10-22] MEDS ORDERED: ALBU2.5V8 IH (12:17)
[2020-10-22] MEDS ORDERED: POTA20TA40 PO (12:17)
[2020-10-22] MEDS ORDERED: PRAM0.255 PO (12:17)
[2020-10-22] MEDS ORDERED: ATOR20TA58 PO (12:17)
[2020-10-22] MEDS ORDERED: GABA600T7 PO (12:17)
[2020-10-22] MEDS ORDERED: PROG100C10 PO (12:17)
[2020-10-22] MEDS ORDERED: LISI10TA16 PO (12:17)
[2020-10-22] MEDS ORDERED: HYDR-2769 PO (12:17)
[2020-10-22] MEDS ORDERED: PANT40TA6 PO (12:17)
[2020-10-22] MEDS ORDERED: PIOG30TA41 PO (12:17)
[2020-10-22] MEDS ORDERED: VENL150T PO (12:17)
[2020-10-22] MEDS ORDERED: LORA-254 PO ×3 (12:31→14:24)
[2020-10-22] MEDS: POTASSIUM CHLORIDE 20 MEQ TABLET.ER. PO SCH ×2 (13:20→20:43)
[2020-10-22] MEDS: GABAPENTIN 300 MG CAPSULE. PO SCH ×2 (13:21→20:43)
[2020-10-22] MEDS: PRAMIPEXOLE 0.25 MG TABLET. PO SCH ×2 (13:21→20:43)
[2020-10-22] MEDS ORDERED: DESV50TA12 PO (13:43)
--- NOTE | 2020-10-22 13:50 | HP ---
ADMIT DATE: 10/22/2020 HISTORY OF PRESENT ILLNESS: The patient is a 65-year-old female patient who presented to the Emergency Room with worsening shortness of breath as well as cough with yellowish sputum. Denied any fever or chest pain. She did complain of a stuffy nose, headache and diarrhea; however, her biggest complaint is her severe restless leg syndrome. She apparently tested positive for COVID-19 about 9 days ago. Her granddaughter was diagnosed with COVID-19 and therefore, she went and got tested at [facility]. She was asymptomatic throughout all this time; however, as of yesterday, she started having severe shortness of breath. The patient is known to have chronic obstructive pulmonary disease, for which she has an inhaler. She has not been on oxygen at home. She was found to be hypoxic when the EMS examined her and she was started on 2 liters of oxygen by nasal cannula; and by the time she arrived here, she said that she is feeling much better with the supplemental oxygen. She was extensively investigated in the Emergency Room and was apparently started on azithromycin, dexamethasone, and Lovenox and was admitted. Her chest x-ray showed that she has bilateral mild basilar interstitial opacities that may reflect mild pulmonary edema or atypical pneumonia superimposed on interstitial lung disease or chronic obstructive pulmonary disease. Her lab work including her CBC and chemistry was mostly unremarkable except for the fact that she has hypokalemia. PAST MEDICAL HISTORY: Significant for type 2 diabetes mellitus, hypertension, hyperlipidemia, chronic obstructive pulmonary disease, osteoarthritis, and restless leg syndrome. PAST SURGICAL HISTORY: Significant for total abdominal hysterectomy, cholecystectomy, appendectomy, and tonsillectomy. ALLERGIES: SHE IS ALLERGIC TO PENICILLIN, CEPHALEXIN, IODINATED CONTRAST MEDIA, DIPHENHYDRAMINE, AND BACTRIM. MEDICATIONS: She is currently on the following medication: She is on albuterol sulfate 2 puffs every 4-6 hours, atorvastatin calcium 20 mg at bedtime, lisinopril 20 mg once a day, hydrocodone/APAP 10/325 one tablet every 6 hours, gabapentin 600 mg 3 times a day, venlafaxine 150 mg daily, lorazepam 2 mg daily, potassium bicarbonate, citric acid 20 mEq once a day. She is on Protonix 40 mg twice a day, linagliptin 5 mg daily, pioglitazone 30 mg once a day, progesterone micronized 100 mg capsule 1 capsule daily. She is on Mirapex 0.25 mg 3 times a day. FAMILY HISTORY: She has two brothers. One older has multiple medical problems. Her younger brother of massive heart attack at age of 59. Both parents are . SOCIAL HISTORY: Her son and grandson live with her. She has 2 sons and 1 daughter. She smokes a pack a day. Does not drink alcohol or use recreational drugs. She takes care of her handicapped son. REVIEW OF SYSTEMS: As per history of present illness. PHYSICAL EXAMINATION: GENERAL: When I examined her, she was sitting at the edge of the bed, extremely restless with severe pain in her right lower extremity due to restless leg syndrome. She was somewhat pale. No jaundice, cyanosis, no lymphadenopathy, no thyromegaly, no jugular venous distention. No limb edema. VITAL SIGNS: Her heart rate was 87, blood pressure is 134/71, temperature was 98.1, respiratory rate was 20 and oxygen saturation was 96% on 2 liters of oxygen. HEAD, EYES, EARS, NOSE AND THROAT: Normocephalic, atraumatic. NECK: Supple. HEART: Normal first and second heart sounds. No gallop or murmur. CHEST: Shows central trachea, equally reduced expansion, reduced air entry, vesicular breath sounds. I could not really appreciate any crepitation or rhonchi. ABDOMEN: Distended, soft, nontender. NEUROLOGIC: She was grossly intact. LABORATORY DATA: Her lab work showed a white cell count of 6600, hemoglobin 14.8, hematocrit 43, MCV 94, platelet count of 173,000 with normal manual differential. Her chemistry showed a serum sodium 142, potassium 3.1, chloride 105, bicarbonate 24, anion gap of 13, BUN 7, creatinine 0.9. Estimated GFR was 63 mL per minute. Her glucose 159, calcium was 8.1. Total bilirubin, AST, ALT were normal. Alkaline phosphatase is slightly elevated. Total protein 6.3, albumin was 3.1. ASSESSMENT: 1. COVID-19 pneumonia. 2. Acute hypoxic respiratory failure. 3. Chronic obstructive pulmonary disease. PLAN: My plan is to reconcile all her medications. Replenish her potassium. Continue with dexamethasone. Continue with IV antibiotic, probably in the form of levofloxacin as SHE IS ALLERGIC TO PENICILLIN AND CEPHALOSPORINS. Continue with Lovenox and we might have to add remdesivir if her oxygen requirement is worsened. FARHAN/HILARY/BORIS DR: Stephanie TID: [id number]
[2020-10-22] MEDS: LORazepam 1 MG TABLET PO PRN (14:37)
[2020-10-22 15:44] VITALS: BP 146/84
--- NOTE | 2020-10-22 15:56 | NUR ---
Admission Note Patient arrived to unit from ED to floor at 1119. Patient medically stable n 2L supplemental oxygen via nasal cannula. Patient accommodated to unit, admission assessment done. Patient is ambulatory in room per self.
[2020-10-22] MEDS ORDERED: DESVENLAFAXINE 50 MG TAB.ER.24H. PO ONE (16:30)
[2020-10-22] MEDS: LOPERAMIDE 2 MG CAPSULE PO PRN ×2 (17:44→20:56)
[2020-10-22 19:59] VITALS: BP 135/81
[2020-10-22] MEDS: TEMAZEPAM 15 MG CAPSULE PO PRN (20:43)
[2020-10-22] MEDS: PANTOPRAZOLE 40 MG TABLET. PO SCH (20:43)
[2020-10-22 23:47] VITALS: BP 120/75
[2020-10-23 06:03] VITALS: BP 117/66
[2020-10-23 06:46] LABS: HEMATOCRIT 39.2 % (36.0-47.0); HEMOGLOBIN 13.4 g/dL (12.0-15.5); RED BLOOD COUNT 4.15 x10^6/uL (3.50-5.40); RED CELL DISTRIBUTION WIDTH 13.4 % (11.5-14.5); WHITE BLOOD COUNT 6.2 x10^3/uL (4.0-11.0)
[2020-10-23] MEDS: LORazepam 1 MG TABLET PO PRN ×3 (06:56→20:50)
[2020-10-23 07:00] LABS: ALBUMIN 2.8 g/dL (3.4-5.0); ALBUMIN/GLOBULIN RATIO 0.8 (1.0-1.7); CALCIUM 8.8 mg/dL (8.5-10.1); CREATININE 0.7 mg/dL (0.6-1.0); GFR 84.5; POTASSIUM 3.7 mmol/L (3.5-5.1); TOTAL BILIRUBIN 0.3 mg/dL (0.2-1.0); TOTAL PROTEIN 6.3 g/dL (6.4-8.2)
[2020-10-23] MEDS ORDERED: VENLAFAXINE 50 MG TABLET. PO SCH (09:00)
[2020-10-23] MEDS ORDERED: DEXAMETHASONE SOD PHOS 4 MG/ML VIAL. IVP SCH (09:00)
[2020-10-23] MEDS: DESVENLAFAXINE 50 MG TAB.ER.24H. PO SCH (09:00)
[2020-10-23] MEDS ORDERED: POTASSIUM BICARB 20 MEQ EFFERVESCENT TABLET. PO SCH (09:00)
[2020-10-23] MEDS ORDERED: LORazepam 1 MG TABLET PO SCH (09:00)
[2020-10-23] MEDS: PROGESTERONE MICRONIZED PO SCH (09:00)
[2020-10-23] MEDS: POTASSIUM CHLORIDE 20 MEQ TABLET.ER. PO SCH ×3 (09:00→13:53)
[2020-10-23] MEDS ORDERED: DESVENLAFAXINE 50 MG TAB.ER.24H. PO SCH (09:00)
[2020-10-23] MEDS: ALBUTEROL SULFATE 8GM INHALER. INH PRN (09:01)
[2020-10-23] MEDS: ENOXAPARIN 40 MG/0.4 ML SYRINGE. SQ SCH (09:02)
[2020-10-23] MEDS: LINAGLIPTIN 5 MG TABLET PO SCH (09:03)
[2020-10-23] MEDS: PANTOPRAZOLE 40 MG TABLET. PO SCH ×2 (09:03→20:49)
[2020-10-23] MEDS: ATORVASTATIN CALCIUM 20 MG TABLET PO SCH (09:03)
[2020-10-23] MEDS: PIOGLITAZONE 15 MG TABLET. PO SCH (09:03)
[2020-10-23] MEDS: GABAPENTIN 300 MG CAPSULE. PO SCH ×3 (09:03→20:50)
[2020-10-23] MEDS: LISINOPRIL 10 MG TABLET PO SCH (09:04)
[2020-10-23] MEDS: PRAMIPEXOLE 0.25 MG TABLET. PO SCH ×3 (09:05→20:49)
[2020-10-23 12:00] VITALS: BP 135/81
[2020-10-23] MEDS: SUMAtriptan SUCCINATE 50 MG TABLET PO PRN (16:16)
[2020-10-23 16:41] VITALS: BP 136/77
--- NOTE | 2020-10-23 16:58 | NUR ---
SHIFT NOTE Pt resting comfortably without 02 for most of shift. Pt had anxiety attack during shift related to "family issues". Ativan given per EMAR. Pt also complained of headache late in shift, PRN med order obtained and administered. Will continue to monitor. SUNNI, RN
[2020-10-23 20:08] VITALS: BP 132/59
[2020-10-23] MEDS: TEMAZEPAM 15 MG CAPSULE PO PRN (20:49)
[2020-10-23] MEDS: LACTOBACILLUS RHAMNOSUS GG 1 CAPSULE. PO SCH (20:49)
[2020-10-23] MEDS: POTASSIUM BICARB 20 MEQ EFFERVESCENT TABLET. PO SCH (22:28)
[2020-10-23 23:22] VITALS: BP 107/50
--- NOTE | 2020-10-24 00:28 | PN ---
DATE: 10/23/2020 SUBJECTIVE: The patient is sitting at the edge of the bed comfortably, in no apparent distress. She continued to have short of breath on exertion. She also gets very anxious. PHYSICAL EXAMINATION: GENERAL: However, when I examined her this afternoon, she looked well and was clearly in no apparent respiratory distress. No pallor, jaundice, cyanosis or thyromegaly. No jugular venous distention. No limb edema. VITAL SIGNS: Her heart rate was 72, blood pressure is 135/81, temperature was 97.5, respiratory rate 20, and oxygen saturation was 96%. HEAD, EYES, EARS, NOSE, AND THROAT: Normocephalic, atraumatic. NECK: Supple. HEART: Showed normal first and second heart sounds, no gallop, rub or murmur. CHEST: Shows central trachea, equally reduced expansion, reduced air entry, vesicular breath sounds. I could not really appreciate any crepitation or rhonchi. ABDOMEN: Distended, soft, nontender, no guarding or rigidity. No organomegaly. All hernial orifice intact. Bowel sounds normal. NEUROLOGIC: She is grossly intact. Her intake over the last 24 hours was incompletely recorded. LABORATORY DATA: This morning showed a white cell count of 6200, hemoglobin 13.4, hematocrit 39, MCV 95 and platelet count of 186,000. Serum sodium was 139, potassium 3.7, chloride 106, bicarbonate 24, anion gap of 9, BUN 10, creatinine 0.7. Estimated GFR was 84 mL per minute. Her glucose was 158, calcium was 8.8. Total bilirubin, AST, ALT, and alkaline phosphatase were normal. Total protein was 6.3, albumin was 2.8. ASSESSMENT: 1. COVID-19 pneumonia. 2. Acute hypoxic respiratory failure. 3. Chronic obstructive pulmonary disease. 4. Type 2 diabetes mellitus. 5. Hypertension. 6. Hyperlipidemia. 7. Osteoarthritis. 8. Severe restless leg syndrome. PLAN: To continue with IV levofloxacin. Continue with dexamethasone. Continue with Lovenox. Continue to monitor her blood sugar and adjust insulin as needed. DWAYNE DR: Stephanie TID: [id number]
[2020-10-24] MEDS ORDERED: BENZOCAINE/MENTHOL LOZNGE 18'S BOX. PO PRN (05:00)
[2020-10-24 05:15] VITALS: BP 103/54
--- NOTE | 2020-10-24 06:27 | NUR ---
Pt slept well throughout the night. Last night patient was concerned about her bedtime medications, refusing her neurontin and potassium. Pt requesting liquid potassium but we do not carry that, Talked with pharmacy and got some dissolvable potassium, see eMAR. Pt tolerated well.
[2020-10-24 07:21] LABS: C REACTIVE PROTEIN 9.6 mg/L (0-3.3); CREATININE 0.8 mg/dL (0.6-1.0); GFR 72.4
[2020-10-24] MEDS: GABAPENTIN 300 MG CAPSULE. PO SCH ×4 (09:00→21:00)
[2020-10-24] MEDS: PROGESTERONE MICRONIZED PO SCH (09:00)
[2020-10-24] MEDS: DESVENLAFAXINE 50 MG TAB.ER.24H. PO SCH (09:00)
[2020-10-24] MEDS: LISINOPRIL 10 MG TABLET PO SCH ×2 (09:00→09:13)
[2020-10-24] MEDS: DEXAMETHASONE SOD PHOS 10 MG/ML VIAL. IV SCH (09:00)
[2020-10-24] MEDS: ENOXAPARIN 40 MG/0.4 ML SYRINGE. SQ SCH (09:10)
[2020-10-24] MEDS: ALBUTEROL SULFATE 8GM INHALER. INH PRN (09:10)
[2020-10-24] MEDS: POTASSIUM BICARB 20 MEQ EFFERVESCENT TABLET. PO SCH ×3 (09:11→21:00)
[2020-10-24] MEDS: PANTOPRAZOLE 40 MG TABLET. PO SCH ×2 (09:12→21:16)
[2020-10-24] MEDS: LORazepam 1 MG TABLET PO PRN ×2 (09:12→21:20)
[2020-10-24] MEDS: ATORVASTATIN CALCIUM 20 MG TABLET PO SCH (09:12)
[2020-10-24] MEDS: PRAMIPEXOLE 0.25 MG TABLET. PO SCH ×3 (09:12→21:14)
[2020-10-24] MEDS: LACTOBACILLUS RHAMNOSUS GG 1 CAPSULE. PO SCH ×2 (09:12→21:13)
[2020-10-24] MEDS: PIOGLITAZONE 15 MG TABLET. PO SCH (09:12)
[2020-10-24] MEDS: LINAGLIPTIN 5 MG TABLET PO SCH (09:17)
[2020-10-24] MEDS: SUMAtriptan SUCCINATE 50 MG TABLET PO PRN (10:28)
[2020-10-24 12:17] VITALS: BP 140/82
[2020-10-24 15:24] VITALS: BP 137/79
--- NOTE | 2020-10-24 16:42 | NUR ---
SHIFT NOTE Pt resting comfortably throughout day. Pt continues to sat at 95-97% on RA. Pt's main complaint is caring for her disabled son at home and missing home. PRN anxiety medications, given. Pt continue to refuse gabapentin but complains of legs and foot pain. Will continue to monitor. SUNNI, RN
[2020-10-24 19:49] VITALS: BP 125/72
[2020-10-24] MEDS: TEMAZEPAM 15 MG CAPSULE PO PRN (21:17)
[2020-10-24] MEDS: HYDROcodone/APAP 10/325 1 TAB TABLET PO PRN (21:20)
--- NOTE | 2020-10-24 22:05 | NUR ---
Pt refused Gabapentin, states "I don't take that one anymore." Pt refused Mucinex, states,"I think its drying me out too much." Pt refused potassium effervescent, states,"I think it's upsetting my stomach." Pt is teary and crying. She states she cries "all the time at home." "I struggle with depression and I miss my son. I am worried about him, that he is going to retirement because he was in a MVA and they are blaming him. I've already lost one son. I don't want to lose my other one." Nurse spent about 10 minutes listening to pt. Will continue to monitor.
--- NOTE | 2020-10-24 22:42 | PN ---
DATE: 10/24/2020 SUBJECTIVE: The patient is sitting at the edge of the bed comfortably, in no apparent distress. She continued to complain of shortness of breath on exertion, extremely anxious. Denied any chest pain, cough, phlegm or hemoptysis. Her oxygen saturation was 97% on room air. PHYSICAL EXAMINATION: GENERAL: When I examined her, she looked well with no pallor, jaundice, cyanosis. No lymphadenopathy, no thyromegaly, no jugular venous distention. No lower limb edema. VITAL SIGNS: Her heart rate was 66, blood pressure is 103/54, temperature was 98.1, respiratory rate was 18, and oxygen saturation was 97% on room air. HEAD, EYES, EARS, NOSE, AND THROAT: Normocephalic, atraumatic. NECK: Supple. HEART: Normal first and second heart sounds. No gallop or murmur. CHEST: Clear to auscultation. No crepitation or rhonchi. ABDOMEN: Distended, soft, nontender. NEUROLOGIC: She was grossly intact. Her intake is 1890, no output was recorded. LABORATORY DATA: Her lab work this morning showed a white cell count of 6200, hemoglobin 13, hematocrit 39, MCV 95 and platelet count of 186,000. Serum sodium 140, potassium 4, chloride 107, bicarbonate 28, anion gap of 5, BUN 14, creatinine 0.8. Estimated GFR was 72 mL per minute. Her glucose was 200, calcium was 9. C-reactive protein was 9.6. Her D-dimer was 0.62. ASSESSMENT: 1. COVID-19 pneumonia. 2. Acute hypoxic respiratory failure, resolving. She is now maintaining her oxygen saturation at 97% on room air. 3. Chronic obstructive pulmonary disease. 4. Type 2 diabetes mellitus. 5. Hypertension. 6. Hyperlipidemia. 7. Generalized osteoarthritis. 8. Severe restless leg syndrome. PLAN: To continue with IV levofloxacin. Continue with dexamethasone. Continue with Lovenox. Continue to monitor blood sugar and adjust insulin as needed. TETO DR: Stephanie TID: [id number]
[2020-10-24 23:51] VITALS: BP 137/76
[2020-10-25 05:24] VITALS: BP 122/73
[2020-10-25] MEDS: DEXAMETHASONE SOD PHOS 10 MG/ML VIAL. IV SCH (09:36)
[2020-10-25] MEDS: GABAPENTIN 300 MG CAPSULE. PO SCH ×5 (09:37→21:00)
[2020-10-25] MEDS: PIOGLITAZONE 15 MG TABLET. PO SCH (09:37)
[2020-10-25] MEDS: LACTOBACILLUS RHAMNOSUS GG 1 CAPSULE. PO SCH ×2 (09:38→20:23)
[2020-10-25] MEDS: ATORVASTATIN CALCIUM 20 MG TABLET PO SCH (09:38)
[2020-10-25] MEDS: LINAGLIPTIN 5 MG TABLET PO SCH (09:39)
[2020-10-25] MEDS: ENOXAPARIN 40 MG/0.4 ML SYRINGE. SQ SCH (09:39)
[2020-10-25] MEDS: PANTOPRAZOLE 40 MG TABLET. PO SCH ×2 (09:39→20:24)
[2020-10-25] MEDS: LISINOPRIL 10 MG TABLET PO SCH (09:39)
[2020-10-25] MEDS: POTASSIUM BICARB 20 MEQ EFFERVESCENT TABLET. PO SCH ×5 (09:40→21:00)
[2020-10-25] MEDS: DESVENLAFAXINE 50 MG TAB.ER.24H. PO SCH (09:43)
[2020-10-25] MEDS: PRAMIPEXOLE 0.25 MG TABLET. PO SCH ×3 (09:43→20:23)
[2020-10-25] MEDS: PROGESTERONE MICRONIZED PO SCH (10:47)
[2020-10-25 12:00] VITALS: BP 131/68
[2020-10-25] MEDS ORDERED: DOCUSATE SODIUM 100 MG CAPSULE PO PRN (14:45)
[2020-10-25 15:30] VITALS: BP 143/77
[2020-10-25] MEDS: TEMAZEPAM 15 MG CAPSULE PO PRN (20:22)
[2020-10-25] MEDS: HYDROcodone/APAP 10/325 1 TAB TABLET PO PRN (20:24)
[2020-10-25 22:03] VITALS: BP 132/70
--- NOTE | 2020-10-25 23:16 | PN ---
SUBJECTIVE: The patient is sitting at the edge of the bed, in no apparent respiratory distress. She continued to complain of orthopnea as well as shortness of breath on exertion. She has also her appetite continued to be poor and she has generalized aches and pains. PHYSICAL EXAMINATION: GENERAL: However when I examined her, she looked well and was clearly in no apparent respiratory distress. No pallor, jaundice, cyanosis or thyromegaly. No jugular venous distention. No limb edema. VITAL SIGNS: Her heart rate was 80, blood pressure was 131/68, temperature 97.1, respiratory rate was 18 and oxygen saturation was 96% on room air. HEAD, EYES, EARS, NOSE, AND THROAT: Normocephalic, atraumatic. NECK: Supple. HEART: Showed normal first and second heart sounds. No gallop, rub or murmur. CHEST: Clear to auscultation. No crepitation or rhonchi. ABDOMEN: Distended, soft, nontender. NEUROLOGIC: She was grossly intact. Her intake over the last 24 hours was 1250, no output was recorded. LABORATORY DATA: No lab work done this morning. Her blood cultures are so far negative. ASSESSMENT: 1. COVID-19 pneumonia. 2. Acute hypoxic respiratory failure, resolving. She is now maintaining her oxygen saturation at 96% on room air. 3. Chronic obstructive pulmonary disease. 4. Type 2 diabetes mellitus. 5. Hypertension. 6. Hyperlipidemia. 7. Generalized osteoarthritis. 8. Severe restless leg syndrome. PLAN: To continue with IV levofloxacin. Continue with dexamethasone. Continue with Lovenox. Continue to monitor blood sugar and adjust insulin as needed. The patient will be discharged home tomorrow on oral antibiotic, dexamethasone and all her other medications. PRATIK DR: Stephanie TID: [id number]
[2020-10-26] MEDS: LORazepam 1 MG TABLET PO PRN (06:19)
[2020-10-26 06:34] VITALS: BP 144/78
[2020-10-26] MEDS: DEXAMETHASONE SOD PHOS 10 MG/ML VIAL. IV SCH (07:23)
[2020-10-26] MEDS: PIOGLITAZONE 15 MG TABLET. PO SCH (08:21)
[2020-10-26] MEDS: POTASSIUM BICARB 20 MEQ EFFERVESCENT TABLET. PO SCH ×3 (08:21→14:00)
[2020-10-26] MEDS: PANTOPRAZOLE 40 MG TABLET. PO SCH (08:21)
[2020-10-26] MEDS: LACTOBACILLUS RHAMNOSUS GG 1 CAPSULE. PO SCH (08:21)
[2020-10-26] MEDS: ENOXAPARIN 40 MG/0.4 ML SYRINGE. SQ SCH (08:21)
[2020-10-26] MEDS: LINAGLIPTIN 5 MG TABLET PO SCH (08:22)
[2020-10-26] MEDS: PRAMIPEXOLE 0.25 MG TABLET. PO SCH ×2 (08:22→14:31)
[2020-10-26] MEDS: LISINOPRIL 10 MG TABLET PO SCH (08:22)
[2020-10-26] MEDS: ATORVASTATIN CALCIUM 20 MG TABLET PO SCH (08:22)
[2020-10-26] MEDS: DESVENLAFAXINE 50 MG TAB.ER.24H. PO SCH (08:23)
[2020-10-26] MEDS: GABAPENTIN 300 MG CAPSULE. PO SCH ×2 (08:23→14:00)
[2020-10-26 11:29] VITALS: BP 120/71
[2020-10-26] MEDS ORDERED: LORA-254 PO (13:41)
[2020-10-26] MEDS ORDERED: HYDR-2769 PO (13:41)
--- NOTE | 2020-10-26 14:18 | DISCH ---
HOME HEALTH DISCHARGE/MEDS DISCHARGE INFORMATION: Discharge Date: Oct 26, 2020 Final Diagnosis: Problems Medical Problems: (1) COVID-19 Status: Acute Condition on Discharge: Stable CODE STATUS: Code Status: Full HOME HEALTH: Face to Face: I certify this patient is under my care and that I, or a nurse practitioner or physician's program support assistant working with me, had a face to face encounter that meets the physician face to face encounter requirements with this patient on 10/26/2020 Medical Condition(s): Other Snf For: Admin/Educate Injections Physical Therapy For: Evalulation/Treatment Occupational Therapy For: Evaluation/Treatment Homebound Status Met By: Extreme weakness w/ amb. POST DISCHARGE ORDERS: Activity Instructions for Disc: Resume previous activity DIET AFTER DISCHARGE: Cardiac CERTIFICATION STATEMENT: Certification Statement: Based on the above finding, I certify that this patient is confined to the home and needs intermittent jail care, physical therapy and/or speech therapy, or continues to need occupational therapy.~ This patient is under my care, and I have initiated the establishment of the plan of care.~ This patient will be followed by myself or a community physician who will periodically review the plan of care. DISCHARGE MEDICATIONS: Home Meds Active Scripts Lorazepam (ATIVAN) 1 Mg Tablet, 1 TAB PO BID for anxiety MDD 2 Tablet(s) for 30 Days, #60 TAB 0 Refills Prov:JULIET LANGLEY MD 10/26/20 Hydrocodone Bit/Acetaminophen (HYDROCODONE-APAP 10-325 ) 1 Each Tablet, 1 TAB PO PRN Q6HRS PRN for PAIN for 15 Days, #60 TAB 0 Refills Prov:JULIET LANGLEY MD 10/26/20 Reported Medications Lorazepam (ATIVAN) 1 Mg Tablet, 2 MG PO PRN PRN for ANXIETY / AGITATION MDD 3mg, TAB 10/22/20 Desvenlafaxine (DESVENLAFAXINE ER) 50 Mg Tab.er.24h, 1 TAB PO DAILY for Home Med for 30 Days, #30 TAB 0 Refills 10/22/20 Potassium Bicarbonate/Cit Ac (EFFER-K 20 MEQ TABLET EFF) 20 Meq Tablet.eff, 1.5 TAB PO DAILY for . for 30 Days, #45 TAB 0 Refills 10/22/20 Lisinopril (LISINOPRIL) 10 Mg Tablet, 1 TAB PO DAILY for Home Med, #30 TAB 5 Refills 10/22/20 Atorvastatin Calcium (ATORVASTATIN CALCIUM) 20 Mg Tablet, 1 TAB PO DAILY for Home Meds, #30 TAB 5 Refills 10/22/20 Linagliptin (TRADJENTA) 5 Mg Tablet, 1 TAB PO DAILY for Home Meds, #90 TAB 1 Refill 10/22/20 Progesterone,Micronized (PROGESTERONE) 100 Mg Capsule, 1 CAP PO DAILY for Home Med for 30 Days, #30 CAP 0 Refills 10/22/20 Pioglitazone Hcl (ACTOS) 30 Mg Tablet, 1 TAB PO DAILY for Home Med for 30 Days, #30 TAB 0 Refills 10/22/20 Albuterol Sulfate (PROAIR HFA INHALER) 8.5 Gm Hfa.aer.ad, 2 PUFF IH PRN Q4-6HRS PRN for wheezing for 21 Days, #1 INHALER 0 Refills 10/22/20 Venlafaxine Hcl (VENLAFAXINE HCL ER) 150 Mg Tab.er.24, 100 MG PO DAILY for Home Med, TAB.SR 10/22/20 Gabapentin (GABAPENTIN) 600 Mg Tablet, 600 MG PO TID for NEUROGENIC PAIN, TAB 10/22/20 Pramipexole Di-Hcl (MIRAPEX) 0.25 Mg Tablet, 1 TAB PO TID for Home Med, #90 TAB 1 Refill 10/22/20 Pantoprazole Sodium (PANTOPRAZOLE SODIUM) 40 Mg Tablet.dr, 1 TAB PO BID for Home Med, #30 TAB 3 Refills 10/22/20 Discontinued Reported Medications Lorazepam (ATIVAN) 1 Mg Tablet, 1 MG PO PRN DAILY PRN for ANXIETY / AGITATION, TAB 10/22/20 Hydrocodone Bit/Acetaminophen (HYDROCODONE-APAP 10-325 ) 1 Each Tablet, 1 TAB PO PRN Q6HRS PRN for PAIN, TAB 0 Refills Max 4 tabs in 24hr. 10/22/20 Lorazepam (ATIVAN) 1 Mg Tablet, 2 MG PO DAILY for anxiety, TAB Take 1/2 tab by mouth once a day as needed for anxiety & take 1 tablet by mouth once a day as needed. 10/22/20 Hydrocodone Bit/Acetaminophen (HYDROCODONE-APAP 7.5-325 ) 1 Each Tablet, 1 EACH PO QID 03/13/13 Albuterol Sulfate (PROAIR HFA INHALER) 8.5 Gm Hfa.aer.ad, 8.5 GM IH 03/13/13 Ranitidine Hcl (RANITIDINE HCL) 150 Mg Capsule, 300 MG PO DAILY 03/13/13 Aspirin (ASPIR 81) 81 Mg Tablet.dr, 81 MG PO 03/13/13 JULIET LANGLEY MD Oct 26, 2020 14:18
[2020-10-26] MEDS: LOPERAMIDE 2 MG CAPSULE PO PRN (14:35)
[2020-10-26 15:32] VITALS: BP 124/68
[2020-10-26] MEDS: SUMAtriptan SUCCINATE 50 MG TABLET PO PRN (16:10)
--- NOTE | 2020-10-26 17:07 | NUR ---
DISCHARGE PT discharged by Dr. Ayers. Pt verbalized understanding of paperwork and prescriptions. All questions addressed. Pt GCS 15, VSS and ambulatory at discharge. CC, RN
== END 2020-10-26 17:00 | disposition home health service (06) | DRG 177 ==
LOC: ER 06:47 → 1 SOUTH 07:59
PROVIDERS: ADMIT Internal Medicine; ATTEND Internal Medicine
DX: U07.1 COVID-19 (principal); J12.82 Pneumonia due to coronavirus disease 2019; J96.01 Acute respiratory failure with hypoxia; J44.0 Chronic obstructive pulmonary disease with (acute) lower respiratory infection; E11.9 Type 2 diabetes mellitus without complications; E78.00 Pure hypercholesterolemia, unspecified; E78.5 Hyperlipidemia, unspecified; E87.6 Hypokalemia; F17.210 Nicotine dependence, cigarettes, uncomplicated; G25.81 Restless legs syndrome; I10 Essential (primary) hypertension; M15.9 Polyosteoarthritis, unspecified; Z82.49 Family history of ischemic heart disease and other diseases of the circulatory system; Z90.49 Acquired absence of other specified parts of digestive tract; Z90.710 Acquired absence of both cervix and uterus; E83.42 Hypomagnesemia; F32.9 Major depressive disorder, single episode, unspecified; K21.9 Gastro-esophageal reflux disease without esophagitis; Z88.8 Allergy status to other drugs, medicaments and biological substances
CPT/HCPCS: 36415; 71045; 80048; 80053; 82947; 84484; 85025; 85027; 85379; 86140; 93005; 94618; 96361; 96365; 96372; 96375; J0456; J1100; J1650; J1956; J2765; J7050; 99281-25; J7030